=== PATIENT | female | born 1990 | race Two or more races ===

== ENCOUNTER 2018-11-14 07:26 | Emergency (ER) | payer OTHER ==
[2018-11-14 08:54] LABS: ALBUMIN 3.4 g/dL (3.5-5.0); ALKALINE PHOSPHATASE 99 U/L (38-126); ANION GAP 9 (5-19); ASPARTATE AMINO TRANSFERASE 22 U/L (14-36); BILIRUBIN,DIRECT 0.2 mg/dL (0.0-0.4); BILIRUBIN,TOTAL 0.4 mg/dL (0.2-1.3); BLOOD UREA NITROGEN 7 mg/dL (7-20); CALCIUM 8.8 mg/dL (8.4-10.2); CARBON DIOXIDE 21 mmol/L (22-30); CHLORIDE 104 mmol/L (98-107); GLUCOSE 83 mg/dL (75-110); POTASSIUM 4.3 mmol/L (3.6-5.0); TOTAL PROTEIN 6.8 g/dL (6.3-8.2)
[2018-11-14 09:07] LABS: ABSOLUTE EOSINOPHILS # (AUTO) 0.3 10^3/uL (0.0-0.6); ABSOLUTE LYMPHOCYTES (AUTO) 1.5 10^3/uL (0.5-4.7); ABSOLUTE MONOCYTES (AUTO) 0.6 10^3/uL (0.1-1.4); ABSOLUTE NEUT (AUTO) 6.9 10^3/uL (1.7-8.2); BASOPHILS % (AUTO) 0.3 % (0-2); EOSINOPHILS % (AUTO) 2.8 % (0-6); HEMOGLOBIN 11.8 g/dL (12.0-15.5); LYMPHOCYTES % (AUTO) 16.4 % (13-45); MEAN CORPUSCULAR HEMOGLOBIN 30.1 pg (27.0-33.4); MEAN CORPUSCULAR HGB CONC 33.8 g/dL (32.0-36.0); MEAN CORPUSCULAR VOLUME 89 fl (80-97); MONOCYTES % (AUTO) 6.4 % (3-13); PLATELET COUNT 311 10^3/uL (150-450); RED BLOOD COUNT 3.94 10^6/uL (3.72-5.28); RED CELL DISTRIBUTION WIDTH 12.2 % (11.5-14.0); SEGMENTED NEUTROPHILS % (AUTO) 74.1 % (42-78); TOTAL CELLS COUNTED % (AUTO) 100 %; WHITE BLOOD COUNT 9.3 10^3/uL (4.0-10.5)
--- NOTE | 2018-11-14 09:07 | RADIOLOGY REPORT (SQ) ---
EXAM DESCRIPTION: U/S RETROPERITON (RENAL/AORTA) COMPLETED DATE/TIME: 11/14/2018 8:59 am REASON FOR STUDY: Left flank pain COMPARISON: None. TECHNIQUE: Dynamic and static grayscale images acquired of the kidneys and bladder and recorded on P ACS. Additional selected color Doppler and spectral images recorded. LIMITATIONS: Limited. Patient . FINDINGS: RIGHT KIDNEY: Normal size. Normal echogenicity. No solid or suspicious masses. No hydronep hrosis. No calcifications. LEFT KIDNEY: Normal size. Normal echogenicity. No solid or suspicious masses. No hydronephrosis. No calcifications. BLADDER: No masses. OTHER FINDINGS: Fetus vertex presentation. heart rate 126. IMPRESSION: NORMAL RENAL AND BLADDER ULTRASOUND. No hydronephrosis. TECHNICAL DOCUMENTATION: JOB ID: [id number] [employer]- All Rights Reserved Reading location - IP/workstation name: [email or web address]
--- NOTE | 2018-11-14 09:11 | ER Document Report ---
ED General - General Chief Complaint: Rib Pain Stated Complaint: LEFT SIDE/LOW BACK PAIN Time Seen by Provider: 11/14/18 08:06 Mode of Arrival: Ambulatory Information source: Patient Notes: Patient is a 28-year-old female presenting to the emergency department with left flank pain. Patient reports pain has been going on for 1 week. She is 29 weeks . She states she has also had a cough that is been going on for 1 month. She describes this as a nonproductive cough. She does report that approximately 1 week ago when the rib pain started she did feel a pop when she coughed. [place] Flexeril and Tylenol. She states she is taking these medications without relief. She denies any shortness of breath, abdominal pain or dysuria. She denies any history of DVT or PE. She has not had a fever or chills. TRAVEL OUTSIDE OF THE [place] IN LAST 30 DAYS: No - Related Data Allergies/Adverse Reactions: No Known Allergies Allergy (Verified 03/19/15 21:24) Past Medical History - General Information source: Patient - Social History Smoking Status: Never Smoker Chew tobacco use (# tins/day): No Frequency of alcohol use: None Drug Abuse: None Family History: Reviewed & Not Pertinent Patient has suicidal ideation: No Patient has homicidal ideation: No - Medical History Medical History: Negative - Past Medical History Cardiac Medical History: Denies: Hx Heart Attack, Hx Hypertension Pulmonary Medical History: Denies: Hx Asthma Neurological Medical History: Denies: Hx Cerebrovascular Accident, Hx Seizures Renal/ Medical History: Denies: Hx Peritoneal Dialysis GI Medical History: Denies: Hx Hepatitis, Hx Hiatal Hernia, Hx Ulcer Infectious Medical History: Denies: Hx Hepatitis Surgical Hx: Negative Past Surgical History: Denies: Hx Hysterectomy, Hx Mastectomy, Hx Open Heart Surgery, Hx Pacemaker - Immunizations Hx Diphtheria, Pertussis, Tetanus Vaccination: Yes Review of Systems - Review of Systems Constitutional: No symptoms reported EENT: No symptoms reported Cardiovascular: No symptoms reported Respiratory: No symptoms reported Gastrointestinal: No symptoms reported Genitourinary: Flank pain Female Genitourinary: No symptoms reported Musculoskeletal: Back pain Skin: No symptoms reported Hematologic/Lymphatic: No symptoms reported Neurological/Psychological: No symptoms reported Physical Exam - Vital signs Vitals: Temp Pulse Resp BP Pulse Ox 98.0 F 103 H 24 H 129/72 H 95 11/14/18 07:31 11/14/18 07:31 11/14/18 07:31 11/14/18 07:31 11/14/18 07:31 - Notes Notes: PHYSICAL EXAMINATION: GENERAL: Well-appearing, well-nourished and in no acute distress. HEAD: Atraumatic, normocephalic. EYES: Pupils equal round and reactive to light, extraocular movements intact, conjunctiva are normal. ENT: Nares patent, oropharynx clear without exudates. Moist mucous membranes. NECK: Normal range of motion, supple without lymphadenopathy LUNGS: Breath sounds clear to auscultation bilaterally and equal. No wheezes rales or rhonchi. Persistent cough noted. HEART: Regular rate and rhythm without murmurs ABDOMEN: Soft, nontender, nondistended abdomen. No guarding, no rebound. No masses appreciated. Female : deferred Musculoskeletal: Tenderness to palpation to left posterior/lateral flank area. NEUROLOGICAL: Cranial nerves grossly intact. Normal speech, normal gait. Normal sensory, motor exams PSYCH: Normal mood, normal affect. SKIN: Warm, Dry, normal turgor, no rashes or lesions noted. Course - Re-evaluation Re-evalutation: Case was discussed with my attending, Dr. bradford. Will send patient for chest x- ray, retroperitoneal ultrasound of her left kidney, obtain basic labs and a urinalysis. Patient appears well, nontoxic and her physical exam is unre markable other than a persistent cough and tenderness to palpation to left lumbar/flank area. There is no vertebral tenderness, step-off or deformity. She has no calf swelling. Work-up showed that patient has a fracture of the 9th rib as outlined below. She will be d/c home with an incentive spirometer and pain medications. Copy of xray given for her to follow up with her pcp. ED return precautions discussed. Laboratory 11/14/18 11/14/18 11/14/18 07:55 07:55 07:55 WBC 9.3 RBC 3.94 Hgb 11.8 L Hct 35.0 L MCV 89 MCH 30.1 MCHC 33.8 RDW 12.2 Plt Count 311 Seg Neutrophils % 74.1 Lymphocytes % 16.4 Monocytes % 6.4 Eosinophils % 2.8 Basophils % 0.3 Absolute Neutrophils 6.9 Absolute Lymphocytes 1.5 Absolute Monocytes 0.6 Absolute Eosinophils 0.3 Absolute Basophils 0.0 Sodium 134.4 L Potassium 4.3 Chloride 104 Carbon Dioxide 21 L Anion Gap 9 BUN 7 Creatinine 0.55 Est GFR ( Amer) > 60 Est GFR (Non-Af Amer) > 60 Glucose 83 Calcium 8.8 Total Bilirubin 0.4 Direct Bilirubin 0.2 Neonat Total Bilirubin Not Reportable Neonat Direct Bilirubin Not Reportable Neonat Indirect Bili Not Reportable AST 22 ALT 14 Alkaline Phosphatase 99 Total Protein 6.8 Albumin 3.4 L Urine Color STRAW Urine Appearance CLEAR Urine pH 9.0 Ur Specific [place] 1.003 Urine Protein NEGATIVE Urine Glucose (UA) NEGATIVE Urine Ketones NEGATIVE Urine Blood NEGATIVE Urine Nitrite NEGATIVE Urine Bilirubin NEGATIVE Urine Urobilinogen NEGATIVE Ur Leukocyte Esterase NEGATIVE Urine WBC (Auto) 0 Urine RBC (Auto) 0 Squamous Epi Cells Auto 2 Urine Mucus (Auto) RARE Urine Ascorbic Acid NEGATIVE Chest X-Ray 11/14/18 08:35 IMPRESSION: No pneumothorax. Age indeterminate fracture of the 9th anterolateral left rib. Renal Ultrasound 11/14/18 08:35 IMPRESSION: NORMAL RENAL AND BLADDER ULTRASOUND. No hydronephrosis. - Vital Signs Vital signs: Temp Pulse Resp BP Pulse Ox 97.7 F 74 16 114/68 100 11/14/18 10:45 11/14/18 10:45 11/14/18 10:45 11/14/18 10:45 11/14/18 10:45 - Laboratory Result Diagrams: 11/14/18 07:55 11/14/18 07:55 Laboratory results interpreted by me: 11/14/18 11/14/18 07:55 07:55 Hgb 11.8 L Hct 35.0 L Sodium 134.4 L Carbon Dioxide 21 L Albumin 3.4 L Discharge - Discharge Clinical Impression: Rib fracture Condition: Stable Disposition: HOME, SELF-CARE Additional Instructions: Rib Injuries and Fractures You have been diagnosed as having either bruised or broken ribs. These two injuries are treated in the same way. It will usually take four to six weeks for these injured ribs to heal. Sometimes, rib belts or anesthetic injections of the chest wall help reduce the pain. If you are using a rib belt, you should cough or take a deep breath at least every hour or two to prevent lung complications. You should not engage in any strenuous physical activity until released by your physician. The usual rule is "if it hurts, don't do it." Rib fractures can lead to serious lung complications including lung collapse, hemorrhage, and pneumonia. You should call the physician or return at once if any of the following occur: (1) Fever or chills. (2) Persistent cough, coughing up blood, or shortness of breath. (3) Increasing pain. (4) Weakness, lightheadedness, or fainting. Please take pain medication as prescribed. Please note that this does contain acetaminophen so please do not take more than 4000 mg/day of acetaminophen. Use the incentive spirometer, use this 10 times per hour while awake. It is safe to take an [id number] cough medicine such as Robitussin during . You may want to consider placing a humidifier in your room as well. Follow-up with your TREE EXPERT as discussed. Prescriptions: Hydrocodone Bit/Acetaminophen [Hydrocodon-Acetaminophen 5-325] 1 each PO Q4H #15 tablet
[2018-11-14 09:16] LABS: APPEARANCE,URINE CLEAR; BILIRUBIN,URINE NEGATIVE (NEGATIVE); COLOR,URINE STRAW; GLUCOSE, URINE NEGATIVE (NEGATIVE); KETONES,URINE NEGATIVE (NEGATIVE); LEUKOCYTE ESTERASE,URINE NEGATIVE (NEGATIVE); NITRITE,URINE NEGATIVE (NEGATIVE); PROTEIN,URINE NEGATIVE (NEGATIVE); URINE SPECIFIC GRAVITY 1.003; UROBILINOGEN,URINE NEGATIVE mg/dL (<2.0)
--- NOTE | 2018-11-14 10:08 | RADIOLOGY REPORT (SQ) ---
EXAM DESCRIPTION: CHEST 2 VIEWS COMPLETED DATE/TIME: 11/14/2018 9:37 am REASON FOR STUDY: cough x1 month COMPARISON: None. EXAM PARAMETERS: NUMBER OF VIEWS: two views TECHNIQUE: Digital Frontal and Lateral radiographic views of the chest acquired. RADIATION DOSE: NA LIMITATIONS: none FINDINGS: LUNGS AND PLEURA: No opacities, masses or pneumothorax. No pleural effusion. MEDIASTINUM AND HILAR STRUCTURES: No masses or contour abnormalities. HEART AND VASCULAR STRUCTURES: Heart normal size. No evidence for failure. BONES: Deformity of the 9th anterolateral left rib. Age indeterminate fracture. HARDWARE: None in the chest. OTHER: No other significant finding. IMPRESSION: No pneumothorax. Age indeterminate fracture of the 9th anterolateral left rib. TECHNICAL DOCUMENTATION: JOB ID: [id number] [employer]- All Rights Reserved Reading location - IP/workstation name: [email or web address]
[2018-11-14 10:52] VITALS: BP 114/68
== END 2018-11-14 10:45 | disposition home or self-care (01) ==
LOC: ER 07:26
DX: O99.89 Other specified diseases and conditions complicating pregnancy, childbirth and the puerperium (principal); M84.38XA Stress fracture, other site, initial encounter for fracture; X58.XXXA Exposure to other specified factors, initial encounter; M54.5 Low back pain; O26.893 Other specified pregnancy related conditions, third trimester; R10.9 Unspecified abdominal pain; R05 Cough; Z3A.29 29 weeks gestation of pregnancy; R07.81 Pleurodynia
CPT/HCPCS: 36415; 71046; 76770; 80053; 81001; 85025; 99283

== ENCOUNTER 2018-11-30 11:09 | Emergency (ER) | payer OTHER ==
[2018-11-30 11:26] VITALS: BP 106/66
--- NOTE | 2018-11-30 12:15 | ER Document Report ---
ED Medical Screen (RME) - General Chief Complaint: Rectal Pain Stated Complaint: RECTAL PAIN Time Seen by Provider: 11/30/18 12:08 Mode of Arrival: Ambulatory Information source: Patient Notes: This 28-year-old female that presents to the emergency department with hemorrhoids. She is 34 weeks G2, P0 reports that she was seen by her BARKER OPERATOR recently and treated with stool softeners and tucks. Patient reports she was still hurting so she contacted her BARKER OPERATOR over the phone and they ordered some hemorrhoid cream but she never picked it up. She reports the BARKER OPERATOR never looked at her hemorrhoids. I have greeted and performed a rapid initial assessment of this patient. A comprehensive ED assessment and evaluation of the patient, analysis of test results and completion of the medical decision making process will be conducted by additional ED providers. Dictation of this chart was performed using voice recognition software; therefore, there may be some unintended grammatical errors . TRAVEL OUTSIDE OF THE [place] IN LAST 30 DAYS: No - Related Data Allergies/Adverse Reactions: No Known Allergies Allergy (Verified 11/30/18 11:11) Past Medical History - Past Medical History Cardiac Medical History: Denies: Hx Heart Attack, Hx Hypertension Pulmonary Medical History: Denies: Hx Asthma Neurological Medical History: Denies: Hx Cerebrovascular Accident, Hx Seizures Renal/ Medical History: Denies: Hx Peritoneal Dialysis GI Medical History: Denies: Hx Hepatitis, Hx Hiatal Hernia, Hx Ulcer Infectious Medical History: Denies: Hx Hepatitis Past Surgical History: Denies: Hx Hysterectomy, Hx Mastectomy, Hx Open Heart Surgery, Hx Pacemaker - Immunizations Hx Diphtheria, Pertussis, Tetanus Vaccination: Yes Physical Exam - Vital signs Vitals: Temp Pulse Resp BP Pulse Ox 97.4 F 100 18 106/66 97 11/30/18 11:25 11/30/18 11:25 11/30/18 11:25 11/30/18 11:25 11/30/18 11:25 Course - Vital Signs Vital signs: Temp Pulse Resp BP Pulse Ox 97.4 F 100 18 106/66 97 11/30/18 11:25 11/30/18 11:25 11/30/18 11:25 11/30/18 11:25 11/30/18 11:25
[2018-11-30] MEDS ORDERED: HYDROCORTISONE ACETATE 25 MG SUPP.RECT PR ONE (17:26)
--- NOTE | 2018-11-30 17:31 | ER Document Report ---
ED GI/ - General Chief Complaint: Rectal Pain Stated Complaint: RECTAL PAIN Time Seen by Provider: 11/30/18 12:08 Mode of Arrival: Ambulatory Notes: 28-year-old female presented to ED for complaint of rectal pain. She does have internal and external hemorrhoids. She is 34 weeks 2 para 0. She states she saw her PORTFOLIO ADMINISTRATOR recently they treated her with stool softeners and Tucks. The pain got worse so she called them again and they ordered some hemorrhoid cream by phone to [facility]. states he stood in line for a long time and never did get the cream. She came to the emergency room because the pain is getting much worse. Patient is alert oriented respirations regular and unlabored speaking in full sentences. She states the only other problem she has is that she was seen here recently for fall and has a couple broken ribs but she is getting much better on that and is able to use the incentive spirometry. TRAVEL OUTSIDE OF THE [place] IN LAST 30 DAYS: No - HPI Patient complains to provider of: , Other - Rectal pain from hemorrhoids Onset: Other - 4 weeks Timing/Duration: Gradual, Worse Quality of pain: Sharp, Throbbing Severity at maximum: Moderate Severity in ED: Moderate Pain Level: 3 Location: Other - rectal internal and external hemorrhoids Associated symptoms: Other - hemorrhoids Exacerbated by: Sitting, Movement, Walking Relieved by: Denies Similar symptoms previously: Yes Recently seen / treated by doctor: Yes - Related Data Allergies/Adverse Reactions: No Known Allergies Allergy (Verified 11/30/18 11:11) Past Medical History - General Information source: Patient - Social History Smoking Status: Never Smoker Frequency of alcohol use: None Drug Abuse: None Lives with: Family Family History: Reviewed & Not Pertinent Patient has suicidal ideation: No Patient has homicidal ideation: No - Past Medical History Cardiac Medical History: Reports: None Pulmonary Medical History: Reports: None EENT Medical History: Reports: None Neurological Medical History: Reports: None Endocrine Medical History: Reports: None Renal/ Medical History: Reports: None Malignancy Medical History: Reports: None GI Medical History: Reports: Other - hemorrhoids Musculoskeletal Medical History: Reports Hx Musculoskeletal Trauma Skin Medical History: Reports None Psychiatric Medical History: Reports: None Traumatic Medical History: Reports: Hx Fractures - ribs Infectious Medical History: Reports: None Surgical Hx: Negative Past Surgical History: Reports: None - Immunizations Hx Diphtheria, Pertussis, Tetanus Vaccination: Yes Review of Systems - Review of Systems Constitutional: No symptoms reported EENT: No symptoms reported Cardiovascular: No symptoms reported Respiratory: No symptoms reported Gastrointestinal: Other - rectal pain hemorrhoids Genitourinary: No symptoms reported Female Genitourinary: No symptoms reported - weeks, Musculoskeletal: No symptoms reported Skin: No symptoms reported Hematologic/Lymphatic: No symptoms reported Neurological/Psychological: No symptoms reported -: Yes All other systems reviewed and negative Physical Exam - Vital signs Vitals: Temp Pulse Resp BP Pulse Ox 97.4 F 100 18 106/66 97 11/30/18 11:25 11/30/18 11:25 11/30/18 11:25 11/30/18 11:25 11/30/18 11:25 Interpretation: Normal - General General appearance: Appears well, Alert - HEENT Head: Normocephalic, Atraumatic Eyes: Normal Pupils: PERRL - Respiratory Respiratory status: No respiratory distress Chest status: Nontender Breath sounds: Normal Chest palpation: Normal - Cardiovascular Rhythm: Regular Heart sounds: Normal auscultation Murmur: No - Abdominal Inspection: Gravid female - 34 weeks Distension: No distension Bowel sounds: Normal Tenderness: Nontender Organomegaly: No organomegaly Notes: Onelia swartz Rn assisted with exam - Rectal Tenderness: Yes Hemorrhoids: Internal, External - Back Back: Normal, Nontender - Extremities General upper extremity: Normal inspection, Nontender, Normal color, Normal ROM, Normal temperature General lower extremity: Normal inspection, Nontender, Normal color, Normal ROM, Normal temperature, Normal weight bearing. No: Daylin's sign - Neurological Neuro grossly intact: Yes Cognition: Normal Orientation: AAOx4 Ruth Coma Scale Eye Opening: Spontaneous [place] Coma Scale Verbal: Oriented Ruth Coma Scale Motor: Obeys Commands [place] Coma Scale Total: 15 Speech: Normal Motor strength normal: LUE, RUE, LLE, RLE Sensory: Normal - Psychological Associated symptoms: Normal affect, Normal mood - Skin Skin Temperature: Warm Skin Moisture: Dry Skin Color: Normal Course - Re-evaluation Re-evalutation: 12/01/18 02:19 Patient was treated with Anusol of suppository for her internal and external hemorrhoids. There was no blood noted at the area. Hemorrhoids are easily reduced. Patient was given a prescription for the Anusol and instructed to please follow-up with her PORTFOLIO ADMINISTRATOR. Patient has been verbalized understanding and agreement with treatment plan and patient was discharged home - Vital Signs Vital signs: Temp Pulse Resp BP Pulse Ox 97.4 F 100 18 106/66 97 11/30/18 11:25 11/30/18 11:25 11/30/18 11:25 11/30/18 11:25 11/30/18 11:25 Discharge - Discharge Clinical Impression: Hemorrhoids during in third trimester Condition: Stable Disposition: HOME, SELF-CARE Additional Instructions: Hemorrhoids You have hemorrhoids. These are formed by enlargement of veins around the anus. The cause is increased pressure in the veins, from or straining at bowel movements. Hemorrhoids often cause itching and bleeding with bowel movements. When a hemorrhoid becomes clotted, severe pain and swelling result. Soothing creams and suppositories are often prescribed. Warm sitz-baths may also decrease pain, swelling, and itching. Eat a high-fiber diet. Stool softeners such as Metamucil will help. Keep the area very clean. Medicated cleansing pads (such as Tucks) are u seful after bowel movements. A hose-mounted shower unit (like a shower massager at low water pressure) can be used to clean around tender hemorrhoid tags. You should call the doctor or return if you develop fever, increasing pain, or an enlarging mass around the anus, or if you simply fail to improve with treatment. FOLLOW-UP CARE: If you have been referred to a physician for follow-up care, call the physicians office for an appointment as you were instructed or within the next two days. If you experience worsening or a significant change in your symptoms, notify the physician immediately or return to the Emergency Department at any time for re-evaluation. Prescriptions: Hydrocortisone Acetate [Anusol-Hc] 25 mg RC Q6 PRN #10 supp.rect PRN Reason:
== END 2018-11-30 18:10 | disposition home or self-care (01) ==
LOC: ER 11:09
DX: O22.43 Hemorrhoids in pregnancy, third trimester (principal); Z3A.34 34 weeks gestation of pregnancy
CPT/HCPCS: J3490